=== PATIENT | male | born 1950 | race Caucasian/White ===

== ENCOUNTER 2021-02-28 09:22 | Emergency (ER) | payer OTHER ==
[~2021-02-28] VITALS: Ht 170.2 cm; Wt 104.3 kg
[2021-02-28] MEDS ORDERED: ALBU90OI INH (10:11)
== END 2021-02-28 10:36 | disposition home or self-care (01) ==
LOC: ER 09:22
DX: U07.1 COVID-19 (principal)
CPT/HCPCS: 99284